=== PATIENT | female | born 2000 | race Two or more races ===

== ENCOUNTER 2023-07-14 19:01 | Emergency (ER) | payer OTHER ==
[~2023-07-14] VITALS: Ht 154.9 cm; Wt 43.5 kg
[2023-07-14 21:23] LABS: HEMATOCRIT 37.8 % (36.0-45.00); HEMOGLOBIN 13.3 g/dL (12.0-15.00); MEAN CELL VOLUME 83.2 fL (80.00-100.00); MEAN CORPUSCULAR HEMOGLOBIN 29.3 pg (27.00-32.0); MEAN CORPUSCULAR HGB CONC 35.2 g/dl (32.0-36.0); PLATELET COUNT 172 K/uL (150-450); RED BLOOD COUNT 4.54 M/uL (4.00-6.00); RED CELL DISTRIBUTION WIDTH 13.4 % (11.5-14.5)
== END 2023-07-14 23:49 | disposition home or self-care (01) ==
LOC: EMR PED 19:01 → ER 19:01 → EMR PED 19:15
PROVIDERS: Emergency Medicine
DX: J03.90 Acute tonsillitis, unspecified (principal); Z20.822 Contact with and (suspected) exposure to COVID-19